=== PATIENT | male | born 1985 | race African-American/Black ===

== ENCOUNTER 2022-11-07 16:18 | Emergency (ER) | payer MEDICAID, OTHER ==
[~2022-11-07] VITALS: Ht 188 cm; Wt 100.0 kg
[2022-11-07 16:25] VITALS: BP 115/66; PULSE 78; RESP 19; TEMP 98.1; O2SAT 98
== END 2022-11-07 17:41 | disposition left against medical advice (07) ==
LOC: ER 16:18
DX: Z53.21 Procedure and treatment not carried out due to patient leaving prior to being seen by health care provider (principal)
CPT/HCPCS: 99281